=== PATIENT | male | born 2000 | race Caucasian/White ===

== ENCOUNTER 2019-04-30 07:01 | Emergency (ER) | payer BC ==
[2019-04-30 07:20] VITALS: BP 124/68
--- NOTE | 2019-04-30 07:25 | UC ---
Throat Pain/Nasal Fabrizio HPI - HPI Summary HPI Summary: sore throat x 1 day, pain is 5 out of 10 , worse with eating and drinking, better with Tylenol denies any nasal congestion, no cough , no fever, + chills and body aches - History of Current Complaint Chief Complaint: UCGeneralIllness Stated Complaint: ST,CHILLS,SWEATY Time Seen by Provider: 04/30/19 07:15 Hx Obtained From: Patient Onset/Duration: Gradual Onset, Lasting Days - 1, Still Present Severity: Moderate Pain Intensity: 7 Cough: None Associated Signs & Symptoms: Negative: Wheezing, Hoarseness, Sinus Discomfort, Nasal Discharge, Fever, Vomiting, Rash - Allergies/Home Medications Allergies/Adverse Reactions: Allergies Allergy/AdvReac Type Severity Reaction Status Date / Time No Known Allergies Allergy Verified 04/30/19 07:17 Home Medications: Home Medications Ibuprofen TAB* [Motrin TAB* 400 MG] 400 mg PO Q6H PRN 04/30/19 [History Confirmed 04/30/19] PMH/Surg Hx/FS Hx/Imm Hx Previously Healthy: Yes - Surgical History Surgical History: Yes Surgery Procedure, Year, and Place: testicle removed as infant - Family History Known Family History: Negative: Diabetes - Social History Alcohol Use: Occasionally Substance Use Type: None Smoking Status (MU): Never Smoked Tobacco Review of Systems All Other Systems Reviewed And Are Negative: Yes Constitutional: Positive: Chills, Fatigue Skin: Positive: Negative Eyes: Positive: Negative ENT: Positive: Sore Throat. Negative: Ear Ache, Nasal Discharge, Sinus Congestion, Sinus Pain/Tenderness Respiratory: Positive: Negative. Negative: Cough Cardiovascular: Positive: Negative Musculoskeletal: Positive: Myalgia Is Patient Immunocompromised?: No Physical Exam Triage Information Reviewed: Yes Appearance: Well-Appearing, No Pain Distress, Well-Nourished Vital Signs: Initial Vital Signs Temp 99.6 F 04/30/19 07:17 Pulse 91 04/30/19 07:17 Resp 17 04/30/19 07:17 BP 124/68 04/30/19 07:17 Pulse Ox 99 04/30/19 07:17 Vital Signs Reviewed: Yes Eye Exam: Normal Eyes: Positive: Conjunctiva Clear ENT: Positive: Normal ENT inspection, Hearing grossly normal, Pharyngeal erythema, TMs normal. Negative: Nasal congestion, Nasal drainage, TM bulging, TM dull, TM red, Tonsillar swelling, Tonsillar exudate Neck: Positive: Supple, Nontender, No Lymphadenopathy Respiratory: Positive: Chest non-tender, Lungs clear, Normal breath sounds Cardiovascular: Positive: RRR, No Murmur, Pulses Normal Abdominal Exam: Normal Abdomen Description: Positive: Nontender, Soft Skin Exam: Normal Throat Pain/Nasal Course/Dx - Differential Dx/Diagnosis Provider Diagnosis: Viral pharyngitis Discharge ED - Sign-Out/Discharge Documenting (check all that apply): Patient Departure All imaging exams completed and their final reports reviewed: No Studies - Discharge Plan Condition: Stable Disposition: HOME Patient Education Materials: Upper Respiratory Infection (DC) Referrals: No Primary Care Phys,NOPCP [Primary Care Provider] - If Needed Additional Instructions: negative rapid strep viral illness, no need for antibiotics - Billing Disposition and Condition Condition: STABLE Disposition: Home
[2019-04-30 08:01] LABS: Influenza A Molecular NEGATIVE (Negative); Influenza B Molecular NEGATIVE (Negative)
== END 2019-04-30 08:03 | disposition home or self-care (01) ==
LOC: UCCORT 07:01
DX: J02.9 Acute pharyngitis, unspecified (principal); M79.10 Myalgia, unspecified site; R53.83 Other fatigue
CPT/HCPCS: 87651; 99201; G0463

== ENCOUNTER 2019-09-02 20:23 | Emergency (ER) | payer BC ==
[2019-09-02] MEDS ORDERED: Ibuprofen TAB* 600 MG PO ONE (20:28)
[2019-09-02] MEDS ORDERED: HYDROcodone/ACETAMIN 5-325 MG* 1 TAB PO ONE (20:28)
[2019-09-02 20:33] VITALS: BP 126/67
--- NOTE | 2019-09-02 20:44 | UC ---
Hand/Wrist HPI - HPI Summary HPI Summary: Dislocation of right index finger approx 1999 this evening--jammed while playing basketball. - History Of Current Complaint Chief Complaint: UCUpperExtremity Stated Complaint: RT INDEX FINGER Time Seen by Provider: 09/02/19 20:41 Hx Obtained From: Patient ?: No Onset/Duration: Sudden Onset, Lasting Minutes Severity Initially: Severe Severity Currently: Severe Pain Intensity: 6 Character Of Pain: Aching, Spasmodic, Stiffness Aggravating Factor(s): Movement Alleviating Factor(s): Nothing Associated Signs And Symptoms: Positive: Other - deformity Related History: Dominant Hand Right - Allergies/Home Medications Allergies/Adverse Reactions: Allergies Allergy/AdvReac Type Severity Reaction Status Date / Time No Known Allergies Allergy Verified 09/02/19 20:29 Home Medications: Home Medications Ibuprofen TAB* [Motrin TAB* 400 MG] 400 mg PO Q6H PRN 04/30/19 [History Confirmed 09/02/19] PMH/Surg Hx/FS Hx/Imm Hx Previously Healthy: Yes - Surgical History Surgical History: Yes Surgery Procedure, Year, and Place: testicle removed as infant - Family History Known Family History: Negative: Diabetes - Social History Alcohol Use: Occasionally Substance Use Type: None Smoking Status (MU): Never Smoked Tobacco Review of Systems All Other Systems Reviewed And Are Negative: Yes Musculoskeletal: Positive: Arthralgia, Decreased ROM, Myalgia Is Patient Immunocompromised?: No Physical Exam Triage Information Reviewed: Yes Appearance: Well-Appearing, Well-Nourished, Pain Distress Vital Signs: Initial Vital Signs Temp 97.9 F 09/02/19 20:30 Pulse 72 09/02/19 20:30 Resp 16 09/02/19 20:30 BP 126/67 09/02/19 20:30 Pulse Ox 100 09/02/19 20:30 Vital Signs Reviewed: Yes Eye Exam: Normal ENT Exam: Normal ENT: Positive: Pharynx normal, TMs normal Dental Exam: Normal Neck exam: Normal Respiratory Exam: Normal Cardiovascular Exam: Normal Musculoskeletal: Positive: Strength Limited @, ROM Limited @, Edema @ - in right 2nd finger, deformity of pip joint noted, no swelling or bruising Neurological Exam: Normal Psychological Exam: Normal Skin Exam: Normal Hand/Wrist Course/Dx - Course Course Of Treatment: hx obtained, exam performed, meds reviewed, reduction of joint completed, pain meds given, xray obtained. - Differential Dx/Diagnosis Differential Diagnosis/HQI/PQRI: Dislocation, Fracture Provider Diagnosis: Dislocation of PIP joint of finger Discharge ED - Sign-Out/Discharge Documenting (check all that apply): Patient Departure All imaging exams completed and their final reports reviewed: No Studies - Discharge Plan Condition: Stable Disposition: HOME Patient Education Materials: Finger Dislocation (ED) Referrals: No Primary Care Phys,NOPCP [Primary Care Provider] - Additional Instructions: 1. wear splint for protection 2. Warm water epsom soaks twice a day for the next few days, work through the Range of motion. 3. Ibuprofen 400- 600 mg every 4-6 hours. last dose was at 840 pm - Billing Disposition and Condition Condition: STABLE Disposition: Home
== END 2019-09-02 21:07 | disposition home or self-care (01) ==
LOC: UCCORT 20:23
DX: S63.270A Dislocation of unspecified interphalangeal joint of right index finger, initial encounter (principal); W23.0XXA Caught, crushed, jammed, or pinched between moving objects, initial encounter; Y93.67 Activity, basketball; Y92.9 Unspecified place or not applicable
CPT/HCPCS: 26770; 73140; 99212; A9270-GY; G0463